=== PATIENT | female | born 1970 | race Two or more races ===

== ENCOUNTER 2017-06-20 10:59 | Inpatient (IN) | payer MEDICAID ==
[~2017-06-20] VITALS: Ht 152.4 cm; Wt 65.8 kg
[2017-06-20 11:54] LABS: BASOPHILS % 0.2 % (0.0-2.0); EOSINOPHILS % 0.3 % (0.0-5.0); HEMATOCRIT. 34.8 % (36.0-48.0); HEMOGLOBIN. 11.4 g/dL (12.0-16.0); MEAN CORPUSCULAR HEMOGLOBIN 26.5 pg (28.0-32.0); MEAN PLATELET VOLUME 8.2 fl (7.4-10.4); MONOCYTES % 12.5 % (2.0-8.0); PLATELET 181 x1000/uL (130-400); RED CELL DISTRIBUTION WIDTH 17.3 % (11.6-14.6)
[2017-06-20 11:57] LABS: PROTHROMBIN TIME 10.4 sec (9.4-11.6)
[2017-06-20 12:05] LABS: CHLORIDE 106 mEq/L (98-107)
[2017-06-20] MEDS ORDERED: MORPHINE SULFATE 4 MG/ML CPJ (NOT FOR IM USE) IV STA (14:15)
[2017-06-20] MEDS ORDERED: FAMOTIDINE 20MG/2ML VIAL IV STA (14:15)
[2017-06-20] MEDS ORDERED: SODIUM CHLORIDE 0.9% 1,000 ML IV ONE (14:15)
[2017-06-20] MEDS ORDERED: ONDANSETRON HCL 4MG/2ML VIAL IV STA (14:15)
[2017-06-20 14:52] LABS: HCG SCREEN NEGATIVE
[2017-06-20 16:06] LABS: CLARITY URINE CLOUDY (CLEAR); COLOR URINE YELLOW (YELLOW); KETONES URINE NEGATIVE (NEGATIVE); LEUKOCYTE ESTERASE URINE 1+ (NEGATIVE); NITRITE URINE NEGATIVE (NEGATIVE); OCCULT BLOOD URINE NEGATIVE (NEGATIVE); PROTEIN URINE NEGATIVE (NEGATIVE); SPECIFIC GRAVITY URINE 1.015 (1.005-1.030); UROBILINOGEN URINE 0.2 E.U./dL (0.2-1.0)
[2017-06-20] MEDS ORDERED: CEFTRIAXONE 1 G PREMIX 50 ML IV ONE (16:30)
[2017-06-20] MEDS ORDERED: PIPERACILLIN/TAZ 3.375G PREMIX 50 ML IV ONE (17:15)
[2017-06-20] MEDS ORDERED: METRONIDAZOLE 500 MG PREMIX 100 ML IV ONE (17:15)
[2017-06-20] MEDS ORDERED: ACETAMINOPHEN 650MG/20.3ML UDC PO PRN (22:45)
[2017-06-20] MEDS ORDERED: ONDANSETRON HCL 4MG/2ML VIAL IV PRN (22:45)
[2017-06-20] MEDS ORDERED: HYDROCODONE/ACETAMINOPHEN 5/325MG TABLET PO PRN (22:45)
[2017-06-20 23:00] VITALS: BP 129/76
[2017-06-20] MEDS: ZOLPIDEM TARTRATE 5MG TABLET PO PRN (23:08)
[2017-06-20] MEDS: SODIUM CHLORIDE 0.9% 1,000 ML IV SCH (23:09)
[2017-06-21] VITALS: BP 112/63
[2017-06-21] MEDS: METRONIDAZOLE 500 MG PREMIX 100 ML IV SCH ×3 (03:20→18:26)
[2017-06-21 04:00] VITALS: BP 114/59
[2017-06-21 06:19] LABS: BASOPHILS % 0.2 % (0.0-2.0); EOSINOPHILS % 0.7 % (0.0-5.0); HEMOGLOBIN. 9.7 g/dL (12.0-16.0); LYMPHOCYTES % 19.4 % (20.0-50.0); MEAN CORPUSCULAR HEMOGLOBIN 26.1 pg (28.0-32.0); MEAN CORPUSCULAR VOLUME 80.4 fL (81.0-99.0); MEAN PLATELET VOLUME 8.5 fl (7.4-10.4); MONOCYTES % 10.5 % (2.0-8.0); NEUTROPHILS % 69.2 % (40.0-76.0); PLATELET 148 x1000/uL (130-400); RED BLOOD CELL COUNT 3.73 mill/uL (4.2-5.4); RED CELL DISTRIBUTION WIDTH 17.2 % (11.6-14.6)
[2017-06-21 07:13] LABS: CHLORIDE 106 mEq/L (98-107)
[2017-06-21 08:00] VITALS: BP 97/59
[2017-06-21] MEDS ORDERED: ENOXAPARIN 40MG/0.4ML SYR SUBCUT SCH (09:00)
[2017-06-21 12:00] VITALS: BP 116/71
[2017-06-21] MEDS: POTASSIUM CHLORIDE INJ 40 MEQ in DEXT 5% WATER 500 ML IV SCH ×3 (13:14→13:42)
[2017-06-21] MEDS ORDERED: POTASSIUM CHLORIDE 20MEQ TABLET SR PO NR (13:45)
[2017-06-21 16:00] VITALS: BP 118/71
[2017-06-21] MEDS ORDERED: CEFTRIAXONE 1 G PREMIX 50 ML IV SCH (17:00)
[2017-06-21 20:00] VITALS: BP 120/70
[2017-06-21] MEDS: SODIUM CHLORIDE 0.9% 1,000 ML IV SCH (20:56)
[2017-06-21] MEDS: ZOLPIDEM TARTRATE 5MG TABLET PO PRN (23:07)
[2017-06-22] VITALS: BP 104/56
[2017-06-22] MEDS: METRONIDAZOLE 500 MG PREMIX 100 ML IV SCH (01:34)
== END 2017-06-22 02:55 | disposition short-term general hospital (02) | DRG 244 ==
LOC: ER 10:59 → 6EST 17:32 → ENRESERV 20:11
PROVIDERS: ADMIT Internal Medicine; ATTEND Internal Medicine
DX: K57.32 Diverticulitis of large intestine without perforation or abscess without bleeding (principal); E87.2 Acidosis; Q61.3 Polycystic kidney, unspecified; D64.9 Anemia, unspecified; I10 Essential (primary) hypertension; N20.0 Calculus of kidney; Z98.82 Breast implant status; Z90.49 Acquired absence of other specified parts of digestive tract
CPT/HCPCS: 36415; 74176; 76830; 76856; 80053; 81003; 83605; 83690; 84703; 85025; 85610; 87040; 93970; J0696; J1650; J2270; J2405; J2543; J3480; J3490; J7030; J7060